=== PATIENT | female | born 1945 | race Two or more races ===

== ENCOUNTER 2018-02-14 08:20 | Outpatient (CLI) | payer OTHER ==
[~2018-02-14 08:20] MED LIST: FOLGARD TABLET1 EACH; GLYCOTROL CAPS1 EACH; NORVASC5 MG; ZOCOR5 MG
== END 2018-02-14 08:32 | disposition home or self-care (01) ==
LOC: RAD 08:20 → MAMO-SONO 08:20 → RAD 08:32
DX: Z80.0 Family history of malignant neoplasm of digestive organs (principal); C50.412 Malignant neoplasm of upper-outer quadrant of left female breast; D70.2 Other drug-induced agranulocytosis; Z80.3 Family history of malignant neoplasm of breast; D51.8 Other vitamin B12 deficiency anemias; I10 Essential (primary) hypertension; E08.65 Diabetes mellitus due to underlying condition with hyperglycemia; E55.9 Vitamin D deficiency, unspecified; F33.9 Major depressive disorder, recurrent, unspecified

== ENCOUNTER 2018-12-28 12:55 | Emergency (ER) | payer OTHER ==
[~2018-12-28] VITALS: Ht 160 cm; Wt 63.5 kg
[2018-12-28] MEDS ORDERED: TRAZODONE HCL50 MG PO (13:13)
[2018-12-28] MEDS ORDERED: FOLIC ACID1 MG PO (13:13)
[2018-12-28] MEDS ORDERED: ATIVAN1 MG PO (13:14)
[2018-12-28] MEDS ORDERED: SEROQUEL400 MG PO (13:14)
[2018-12-28] MEDS ORDERED: AMLODIPINE BESYL5 MG PO (13:15)
[2018-12-28] MEDS ORDERED: RESTORIL30 MG PO (13:16)
[2018-12-28] MEDS ORDERED: CENTRUM SILVER1 EAC3 PO (13:16)
[2018-12-28] MEDS ORDERED: ZOCOR20 MG PO (13:16)
== END 2018-12-28 19:34 | disposition home or self-care (01) ==
LOC: ER 12:55
DX: R42 Dizziness and giddiness (principal); E86.0 Dehydration; R53.81 Other malaise